=== PATIENT | female | born 1985 | race Caucasian/White ===

== ENCOUNTER 2019-08-27 07:54 | Outpatient (RCR) | payer BC, SELFPAY ==
[2019-08-27 08:35] VITALS: BP 112/72; PULSE 111
== END 2019-09-07 12:16 | disposition home or self-care (01) ==
LOC: ANHOBOP 07:54
PROVIDERS: Visit Provider Obstetrics & Gynecology Gynecology
DX: O36.8130 Decreased fetal movements, third trimester, not applicable or unspecified (principal); Z3A.38 38 weeks gestation of pregnancy
CPT/HCPCS: 59025